=== PATIENT | female | born 1935 | race Caucasian/White ===

== ENCOUNTER → 2017-10-28 | Outpatient (REF) | payer MEDICARE, MEDICAID | LOC: M LAB REF 15:06 | DX: L03.119 Cellulitis of unspecified part of limb (principal) | CPT/HCPCS: 87077; 87186 ==

== ENCOUNTER → 2021-08-14 | Outpatient (CLI) | payer MEDICARE, MEDICAID ==
[~2021-08-14] MED LIST: OMEGA-3 1000MG CAPSULE ONE
== END ==
LOC: M PLAIMG 08:05
PROVIDERS: ATTEND Physician Assistant Surgical
DX: R22.32 Localized swelling, mass and lump, left upper limb (principal)

== ENCOUNTER → 2022-08-06 | Outpatient (CLI) | payer MEDICARE, MEDICAID | LOC: M RAD 12:50 | PROVIDERS: ATTEND Family Medicine | DX: I87.2 Venous insufficiency (chronic) (peripheral) (principal); I70.291 Other atherosclerosis of native arteries of extremities, right leg; R60.0 Localized edema ==